=== PATIENT | female | born 1945 ===

== ENCOUNTER 2021-06-07 16:06 | Inpatient (IN) | payer MEDICARE, OTHER ==
[~2021-06-07] VITALS: Ht 160 cm; Wt 85.7 kg
--- NOTE | 2021-06-07 16:31 | NUR ---
PT IS IN ROOM #1A. DR GAMEZ EVALUATED THE PT.
[2021-06-07] MEDS ORDERED: LISI40TA13 PO (16:35)
[2021-06-07] MEDS ORDERED: ATEN25TA PO (16:35)
[2021-06-07] MEDS ORDERED: vitamin D PO (16:35)
[2021-06-07] MEDS ORDERED: POTA10CA43 PO (16:35)
[2021-06-07] MEDS ORDERED: AMLO-212 PO (16:35)
[2021-06-07] MEDS ORDERED: ATOR20TA PO (16:35)
[2021-06-07] MEDS ORDERED: LIDO1ADH71 TP (16:35)
[2021-06-07] MEDS ORDERED: ESCI-9 PO (16:35)
[2021-06-07] MEDS ORDERED: ASPI-869 PO (16:35)
[2021-06-07] MEDS ORDERED: ACET-2154 PO (16:35)
[2021-06-07] MEDS ORDERED: FURO20TA4 PO (16:35)
[2021-06-07 17:29] LABS: *AMPHETAMINE, URINE NEGATIVE (NEGATIVE); *CANNABINOID, URINE NEGATIVE (NEGATIVE); *COCCAINE, URINE NEGATIVE (NEGATIVE); *OPIATE, URINE NEGATIVE (NEGATIVE); *PHENCYCLIDINE SCREEN,URINE NEGATIVE (NEGATIVE)
--- NOTE | 2021-06-07 18:37 | NUR ---
REPORT WAS GIVEN TO RN MHU.
[2021-06-07] MEDS ORDERED: ACETAMINOPHEN 325 MG TABLET PO PRN (19:00)
--- NOTE | 2021-06-07 19:15 | NUR ---
Report given by SYBIL Swanson. Pt. is pending [facility] admission. Pt. currently resting in bed, complies with instructions, denies any symptoms. A&Ox3.
[2021-06-07] MEDS ORDERED: MAGNESIUM HYDROXIDE 30 ML LIQUID UDC PO PRN (19:45)
[2021-06-07] MEDS ORDERED: MAG HYDROX/AL HYDROX/SIMETH 30 ML LIQUID UDC PO PRN (19:45)
[2021-06-07] MEDS ORDERED: TEMAZEPAM 7.5 MG CAPSULE PO PRN (19:45)
[2021-06-07] MEDS ORDERED: BLOOD SUGAR DIAGNOSTIC 1 EACH STRIP VI ONE (19:45)
[2021-06-07] MEDS: ATORVASTATIN 20 MG TABLET PO SCH ×2 (21:00→21:19)
[2021-06-07] MEDS: LORAZEPAM 1 MG TABLET PO PRN (21:19)
[2021-06-07 21:34] VITALS: BP 157/80
--- NOTE | 2021-06-08 01:43 | NUR ---
ADMITTED TO THE UNIT ON 515 HOLD A FEMALE @ 20:00 FOR GD/DTO. DR VILLALOBOS IS THE PSYCHIATRIST AND DR SEGOVIA IS THE WELL SHOOTER.[facility] NOTIFIED OF ADMISSION.PER HOLD SHE WAS TRANSFERRED FROM [facility] WHERE STAFF REPORTS SHE WAS INCREASINGLY AGITATED,AGGRESSIVE. AND STRIKING OUT AT OTHER RESIDENTS AND CARE DEPENDENTS.SHE WOULD NOT ALSO LISTEN WHEN RE-DIRECTED.UPON FACE TO FACE ASSESSMENT SHE DENIED STRIKING OTHERS " I DID NOT HIT ANYBODY BUT I HATE BULLIES'.SHE HAS MINIMAL INSIGHT AND TENDS TO MINIMIZE EVERYTHING. SHE IS ALSO PARANOID SAYING "THEY HAVE GANGED UP AGAINST BECAUSE I SAW A CHAVEZ TOUCH MY ROOMMATES BOOBS' SHE FOR EXAMPLE SAYS "AM NOT A DIABETIC AND WOULD NOT TAKE ANY MEDICATION EXCEPT MY BP MEDS." RIGHTS HANDBOOK GIVEN TO HER WITH UNIT RULES. BODY ASSESSMENT CHECK WAS DONE. IN BED AND SLEEPING INTERMITTENTLY. VISUAL CHECKS MADE ON HER FOR SAFETY.WILL CONTINUE TO MONITOR.
--- NOTE | 2021-06-08 06:12 | NUR ---
SHE SLEPT FOR 5:30 HOURS. ABLE TO SELF TURN.WILL CONTINUE WITH MONITORING.
[2021-06-08 07:47] VITALS: BP 136/56
[2021-06-08] MEDS: LISINOPRIL 20 MG TABLET PO SCH (08:47)
[2021-06-08] MEDS: FUROSEMIDE 20 MG TABLET PO SCH (08:47)
[2021-06-08] MEDS: CHOLECALCIFEROL 1,000 UNIT TABLET PO SCH ×2 (08:47→08:57)
[2021-06-08] MEDS: ASPIRIN EC 81 MG TABLET.DR PO SCH (08:47)
[2021-06-08] MEDS: AMLODIPINE 5 MG TABLET PO SCH (08:48)
[2021-06-08] MEDS: ATENOLOL 25 MG TABLET PO SCH (08:48)
[2021-06-08] MEDS ORDERED: ASPIRIN EC 325 MG TABLET.DR PO SCH (09:00)
[2021-06-08] MEDS ORDERED: Medication Not On Formulary EA (Lisinopril 40 MG) PO SCH (09:00)
[2021-06-08] MEDS ORDERED: VITAMIN D 50 MCG PO SCH (09:00)
[2021-06-08 09:41] LABS: MEAN CORPUSCULAR HEMOGLOBIN 29.9 uug (24.7-32.8); MEAN CORPUSCULAR VOLUME 88.7 fL (75.5-95.3); PLATELET COUNT (AUTO) 217 K/uL (179-408)
[2021-06-08 10:11] LABS: CARBON DIOXIDE 24 mmol/L (21-32); CHLORIDE 105 mmol/L (98-107); CREATININE 0.9 mg/dL (0.6-1.3); GLUCOSE 191 mg/dL (74-106); POTASSIUM 3.4 mmol/L (3.5-5.1); UREA NITROGEN, BLOOD 15 mg/dL (7-18)
[2021-06-08 10:13] LABS: ETHANOL < 3 MG/DL (0-0)
[2021-06-08 10:16] LABS: ALANINE AMINOTRANSFERASE 32 U/L (14-59); ALKALINE PHOSPHATASE 141 U/L (50-136); ASPARTATE AMINOTRANSFERASE 25 U/L (15-37); BILIRUBIN,DIRECT 0.1 mg/dL (0.0-0.2); BILIRUBIN,TOTAL 0.5 mg/dL (0.2-1.0); TOTAL PROTEIN, SERUM 7.6 g/dL (6.4-8.2)
[2021-06-08 10:40] LABS: THYROID STIMULATING HORMONE 4.094 mIU/mL (0.358-3.740)
[2021-06-08 13:06] LABS: ACETAMINOPHEN < 2.0 ug/mL (10-30)
[2021-06-08 16:30] VITALS: BP 144/84
[2021-06-08 20:00] VITALS: BP 172/68
[2021-06-08] MEDS: ATORVASTATIN 20 MG TABLET PO SCH (20:14)
[2021-06-08] MEDS: ACETAMINOPHEN 325 MG TABLET PO PRN (20:14)
[2021-06-08] MEDS: LORAZEPAM 1 MG TABLET PO PRN (20:14)
[2021-06-08 21:42] VITALS: BP 124/65
--- NOTE | 2021-06-09 05:49 | NUR ---
Received the patient in the day room, coloring. Design Assembler was able to engage patient in conversation. The patient is alert but forgetful and confused about the situation of being here. Design Assembler reoriented patient and provided assurance. Education given regarding medications. Patient was compliant at that time. This patient does anger easily but has not struck out at anybody and is redirectable.Total sleep hours last night were 5.30. Continuing to monitor for safety , behavior escalation and compliance.
[2021-06-09 07:53] VITALS: BP 112/88
[2021-06-09] MEDS ORDERED: risperiDONE 0.25 MG TABLET PO SCH (09:00)
[2021-06-09] MEDS: ASPIRIN EC 81 MG TABLET.DR PO SCH (09:05)
[2021-06-09] MEDS: FUROSEMIDE 20 MG TABLET PO SCH (09:06)
[2021-06-09] MEDS: risperiDONE 0.5 MG TABLET PO SCH ×3 (09:06→16:46)
[2021-06-09] MEDS: CHOLECALCIFEROL 1,000 UNIT TABLET PO SCH (09:06)
[2021-06-09] MEDS: LISINOPRIL 20 MG TABLET PO SCH (09:06)
[2021-06-09] MEDS: ATENOLOL 25 MG TABLET PO SCH (09:07)
[2021-06-09] MEDS: AMLODIPINE 5 MG TABLET PO SCH (09:07)
[2021-06-09 16:56] VITALS: BP 150/61
[2021-06-09] MEDS: METFORMIN HCL 500 MG TABLET PO SCH ×2 (17:12→17:13)
[2021-06-09 20:00] VITALS: BP 129/60
[2021-06-09] MEDS: LORAZEPAM 1 MG TABLET PO PRN (20:20)
[2021-06-09] MEDS: ATORVASTATIN 20 MG TABLET PO SCH (20:20)
[2021-06-10 07:30] VITALS: BP 149/63
[2021-06-10] MEDS: ASPIRIN EC 81 MG TABLET.DR PO SCH (08:36)
[2021-06-10] MEDS: risperiDONE 0.5 MG TABLET PO SCH ×2 (08:36→16:56)
[2021-06-10] MEDS: CHOLECALCIFEROL 1,000 UNIT TABLET PO SCH (08:36)
[2021-06-10] MEDS: METFORMIN HCL 500 MG TABLET PO SCH ×2 (08:36→17:22)
[2021-06-10] MEDS: LISINOPRIL 20 MG TABLET PO SCH (08:37)
[2021-06-10] MEDS: AMLODIPINE 5 MG TABLET PO SCH (08:37)
[2021-06-10] MEDS: FUROSEMIDE 20 MG TABLET PO SCH (08:37)
[2021-06-10] MEDS: ATENOLOL 25 MG TABLET PO SCH (08:39)
--- NOTE | 2021-06-10 08:57 | NUR ---
Firearms Report: Residential Director completed and submitted a [employer] firearms report for 5150 grave disability certifications. A copy of report has been placed in patient chart.
--- NOTE | 2021-06-10 10:05 | NUR ---
ANASTASIYA Initial Discharge Plan: Patient currently resides at [address] [place] [address]; ([phone]). Patient currently resides at [facility]. This SW contacted pt's daughter Jojo ([phone]) to discuss treatment plan and discharge plan, unavailable at this time. ANASTASIYA will work with the MD, family, and treatment team to help coordinate proper discharge.
--- NOTE | 2021-06-10 10:19 | NUR ---
SW Family Contact: This SW contacted pt's daughter Jojo ([phone]) to discuss treatment plan and discharge plan. Daughter advised that she would want pt to return back to her skilled nursing home upon discharge.
--- NOTE | 2021-06-10 11:24 | NUR ---
Treatment Plan: This SW attempted to have pt sign treatment plan. Pt shook her head and refused to sign. Pt appeared paranoid.
[2021-06-10 15:11] VITALS: BP 130/45
--- NOTE | 2021-06-10 16:11 | NUR ---
SNF Referral: This SW faxed clinicals to [facility] ([phone]) (C:[phone]) and sent pt's clinicals who stated that [facility] referred.
[2021-06-10 20:22] VITALS: BP 148/53
[2021-06-10] MEDS: ATORVASTATIN 20 MG TABLET PO SCH (20:25)
[2021-06-11 07:30] VITALS: BP 125/63
[2021-06-11] MEDS: CHOLECALCIFEROL 1,000 UNIT TABLET PO SCH (09:42)
[2021-06-11] MEDS: ASPIRIN EC 81 MG TABLET.DR PO SCH (09:42)
[2021-06-11] MEDS: ATENOLOL 25 MG TABLET PO SCH (09:43)
[2021-06-11] MEDS: risperiDONE 0.5 MG TABLET PO SCH ×2 (09:43→20:12)
[2021-06-11] MEDS: METFORMIN HCL 500 MG TABLET PO SCH ×2 (09:43→17:43)
[2021-06-11] MEDS: LISINOPRIL 20 MG TABLET PO SCH (09:44)
[2021-06-11] MEDS: AMLODIPINE 5 MG TABLET PO SCH (09:44)
[2021-06-11] MEDS: FUROSEMIDE 20 MG TABLET PO SCH (09:44)
--- NOTE | 2021-06-11 10:38 | NUR ---
Individual Therapy: log pond worker met with patient for brief counseling and assessing patient's presenting problem aggressive behavior. Pt appeared to be withdrawn and very guarded. Pt did not want to conduct therapy at this time.
--- NOTE | 2021-06-11 12:53 | NUR ---
SNF Contact: This SW faxed received a call from [facility] (F:[phone]) (C:[phone]) who stated that they are unable to accept pt due to behavior issues.
[2021-06-11 15:45] VITALS: BP 158/67
[2021-06-11 20:09] VITALS: BP 145/50
[2021-06-11] MEDS: ATORVASTATIN 20 MG TABLET PO SCH (20:12)
--- NOTE | 2021-06-12 07:15 | NUR ---
Received pt. in bed sleeping comfortably easily arousable. Pt fully awake at around 1000 complian with medications no c/of pain .
[2021-06-12 07:30] VITALS: BP 123/45
[2021-06-12] MEDS: FUROSEMIDE 20 MG TABLET PO SCH (08:56)
[2021-06-12] MEDS: CHOLECALCIFEROL 1,000 UNIT TABLET PO SCH (08:56)
[2021-06-12] MEDS: METFORMIN HCL 500 MG TABLET PO SCH ×2 (08:56→17:37)
[2021-06-12] MEDS: risperiDONE 0.5 MG TABLET PO SCH (08:57)
[2021-06-12] MEDS: ASPIRIN EC 81 MG TABLET.DR PO SCH (08:57)
[2021-06-12] MEDS: LISINOPRIL 20 MG TABLET PO SCH (08:57)
[2021-06-12] MEDS: AMLODIPINE 5 MG TABLET PO SCH (08:58)
[2021-06-12] MEDS: ATENOLOL 25 MG TABLET PO SCH (09:00)
[2021-06-12 16:00] VITALS: BP 128/57
--- NOTE | 2021-06-12 19:04 | NUR ---
left pt. resting no c/of pain no aggressive behavior, compliant with care.
[2021-06-12 20:14] VITALS: BP 127/63
[2021-06-12] MEDS: ATORVASTATIN 20 MG TABLET PO SCH (20:17)
[2021-06-12] MEDS: risperiDONE 1 MG TABLET PO SCH (20:17)
[2021-06-13 07:30] VITALS: BP 137/54
--- NOTE | 2021-06-13 08:22 | NUR ---
SW Note: [facility] came to evaluate pt today and stated will let this SW if they will accept pt.
[2021-06-13] MEDS: risperiDONE 1 MG TABLET PO SCH ×2 (08:26→22:09)
[2021-06-13] MEDS: CHOLECALCIFEROL 1,000 UNIT TABLET PO SCH (08:26)
[2021-06-13] MEDS: ASPIRIN EC 81 MG TABLET.DR PO SCH (08:27)
[2021-06-13] MEDS: AMLODIPINE 5 MG TABLET PO SCH (08:27)
[2021-06-13] MEDS: FUROSEMIDE 20 MG TABLET PO SCH (08:27)
[2021-06-13] MEDS: LISINOPRIL 20 MG TABLET PO SCH (08:27)
[2021-06-13] MEDS: METFORMIN HCL 500 MG TABLET PO SCH ×2 (08:27→17:55)
[2021-06-13] MEDS: ATENOLOL 25 MG TABLET PO SCH (08:28)
--- NOTE | 2021-06-13 09:28 | NUR ---
Received pt. sleeping comfortably AAOx4. vitals stable compliant with morning med, with no aggressive behavior noted. Reality re-orientation provided. Will continue with care plan
--- NOTE | 2021-06-13 13:14 | NUR ---
ANASTASIYA PC Hearing: Patient had 5250 probable cause hearing today and it was upheld for danger to others and grave disability.
[2021-06-13 16:00] VITALS: BP 121/68
[2021-06-13 20:00] VITALS: BP 136/67
[2021-06-13] MEDS: ATORVASTATIN 20 MG TABLET PO SCH (20:34)
--- NOTE | 2021-06-13 20:45 | NUR ---
Patient ambulatory using walker.Denies SI/HI,appeared suspicious about her medication. Stated she only takes lipitor during the night. Explained risk and benefits of taking medication.Patient then agreed to all her due meds.Will continue to monitor.
--- NOTE | 2021-06-14 06:17 | NUR ---
Patient slept 5 hrs. No s/s of distress. No episodes of aggressive behavior.
[2021-06-14 07:51] VITALS: BP 103/49
[2021-06-14] MEDS: FUROSEMIDE 20 MG TABLET PO SCH (08:18)
[2021-06-14] MEDS: risperiDONE 1 MG TABLET PO SCH ×2 (08:18→20:07)
[2021-06-14] MEDS: ASPIRIN EC 81 MG TABLET.DR PO SCH (08:18)
[2021-06-14] MEDS: METFORMIN HCL 500 MG TABLET PO SCH ×2 (08:18→17:17)
[2021-06-14] MEDS: CHOLECALCIFEROL 1,000 UNIT TABLET PO SCH (08:18)
[2021-06-14] MEDS: LISINOPRIL 20 MG TABLET PO SCH (08:19)
[2021-06-14] MEDS: ATENOLOL 25 MG TABLET PO SCH (08:19)
[2021-06-14] MEDS: AMLODIPINE 5 MG TABLET PO SCH (08:19)
--- NOTE | 2021-06-14 09:22 | NUR ---
SNF Referral: This SW sent clinicals to [facility] admin from [facility] for placement option.
--- NOTE | 2021-06-14 13:07 | NUR ---
SNF Contact This SW sent clinicals to Ed admin from [facility] who stated that pt is accepted.
--- NOTE | 2021-06-14 13:12 | NUR ---
SW Family Contact: This SW contacted patient's daughter Jojo ([phone]) and left a detailed voicemail that patient does not want to go back to [facility]. This SW stated that pt is accepted at [facility] and she would want to go there.
--- NOTE | 2021-06-14 13:25 | NUR ---
SW Note: This SW spoke with patient and pt stated that she does not want to go back to [facility]. This SW offered nursing facility option and stated that she is accepted at [facility] and she expressed she would want to go there.
--- NOTE | 2021-06-14 14:19 | NUR ---
SW Coordination of Care: This SW received a call from Toña([phone]) from facility [facility]; ([phone]) who stated that [facility] can not accept pt and would want her to go to [facility] and stated will evaluate pt on 06/15. This SW sent pt's updated clinicals ([phone]).
[2021-06-14] MEDS: ATORVASTATIN 20 MG TABLET PO SCH (20:07)
[2021-06-14] MEDS: LORAZEPAM 1 MG TABLET PO PRN (20:07)
[2021-06-14 20:14] VITALS: BP 136/62
[2021-06-15 07:33] VITALS: BP 127/47
[2021-06-15] MEDS: ASPIRIN EC 81 MG TABLET.DR PO SCH (08:32)
[2021-06-15] MEDS: risperiDONE 1 MG TABLET PO SCH ×2 (08:32→20:12)
[2021-06-15] MEDS: CHOLECALCIFEROL 1,000 UNIT TABLET PO SCH (08:32)
[2021-06-15] MEDS: METFORMIN HCL 500 MG TABLET PO SCH ×2 (08:32→17:06)
[2021-06-15] MEDS: FUROSEMIDE 20 MG TABLET PO SCH (08:32)
[2021-06-15] MEDS: ATENOLOL 25 MG TABLET PO SCH (08:33)
[2021-06-15] MEDS: AMLODIPINE 5 MG TABLET PO SCH (08:33)
[2021-06-15] MEDS: LISINOPRIL 20 MG TABLET PO SCH (08:34)
[2021-06-15 16:33] VITALS: BP 126/70
[2021-06-15 20:00] VITALS: BP 121/62
[2021-06-15] MEDS: LORAZEPAM 1 MG TABLET PO PRN (20:11)
[2021-06-15] MEDS: ATORVASTATIN 20 MG TABLET PO SCH (20:11)
[2021-06-16 07:30] VITALS: BP 133/67
[2021-06-16] MEDS: FUROSEMIDE 20 MG TABLET PO SCH (08:17)
[2021-06-16] MEDS: CHOLECALCIFEROL 1,000 UNIT TABLET PO SCH (08:17)
[2021-06-16] MEDS: risperiDONE 1 MG TABLET PO SCH ×2 (08:17→20:39)
[2021-06-16] MEDS: METFORMIN HCL 500 MG TABLET PO SCH ×2 (08:17→17:06)
[2021-06-16] MEDS: ASPIRIN EC 81 MG TABLET.DR PO SCH (08:17)
[2021-06-16] MEDS: AMLODIPINE 5 MG TABLET PO SCH (08:17)
[2021-06-16] MEDS: LISINOPRIL 20 MG TABLET PO SCH (08:17)
[2021-06-16] MEDS: ATENOLOL 25 MG TABLET PO SCH (08:18)
[2021-06-16 16:00] VITALS: BP 106/69
[2021-06-16 19:55] VITALS: BP 102/48
[2021-06-16] MEDS: ATORVASTATIN 20 MG TABLET PO SCH (20:39)
[2021-06-16] MEDS: LORAZEPAM 1 MG TABLET PO PRN (20:42)
--- NOTE | 2021-06-16 23:54 | NUR ---
GPS MEDICATION ADMINISTRATION CLARIFICATION ; All medications given to this patient on 06/16/21 from 1900 till now were administered by this sports writer.
[2021-06-17 07:30] VITALS: BP 101/53
[2021-06-17] MEDS: METFORMIN HCL 500 MG TABLET PO SCH ×2 (08:49→17:08)
[2021-06-17] MEDS: FUROSEMIDE 20 MG TABLET PO SCH (08:49)
[2021-06-17] MEDS: ASPIRIN EC 81 MG TABLET.DR PO SCH (08:49)
[2021-06-17] MEDS: risperiDONE 1 MG TABLET PO SCH ×2 (08:49→20:31)
[2021-06-17] MEDS: CHOLECALCIFEROL 1,000 UNIT TABLET PO SCH (08:49)
[2021-06-17] MEDS: LISINOPRIL 20 MG TABLET PO SCH (08:50)
[2021-06-17] MEDS: AMLODIPINE 5 MG TABLET PO SCH (08:50)
[2021-06-17] MEDS: ATENOLOL 25 MG TABLET PO SCH (08:51)
--- NOTE | 2021-06-17 15:02 | NUR ---
SW Note: Toña jackman from [facility] came to evaluate pt and stated they accepted pt.
[2021-06-17 15:04] VITALS: BP 105/46
--- NOTE | 2021-06-17 15:05 | NUR ---
SW Family Contact: This SW contacted patient's daughter Jojo ([phone]) and notified that patient is accepted at [facility] that [facility] that pt has been at before and want pt at that facility upon discharge. This SW stated pt is acceptable of this.
--- NOTE | 2021-06-17 15:07 | NUR ---
SW Note: This SW spoke with pt and stated pt is accepted at [facility] and pt stated that she has been there before and would want to go there. Pt does not want to go back to [facility].
[2021-06-17 20:01] VITALS: BP 104/56
[2021-06-17] MEDS: ATORVASTATIN 20 MG TABLET PO SCH (20:34)
[2021-06-18 07:30] VITALS: BP 141/75
[2021-06-18] MEDS: FUROSEMIDE 20 MG TABLET PO SCH (08:26)
[2021-06-18] MEDS: METFORMIN HCL 500 MG TABLET PO SCH ×2 (08:26→17:03)
[2021-06-18] MEDS: ASPIRIN EC 81 MG TABLET.DR PO SCH (08:26)
[2021-06-18] MEDS: SERTRALINE HCL 50 MG TABLET PO SCH (08:26)
[2021-06-18] MEDS: ACETAMINOPHEN 325 MG TABLET PO PRN (08:26)
[2021-06-18] MEDS: CHOLECALCIFEROL 1,000 UNIT TABLET PO SCH (08:26)
[2021-06-18] MEDS: risperiDONE 1 MG TABLET PO SCH ×2 (08:26→20:33)
[2021-06-18] MEDS: ATENOLOL 25 MG TABLET PO SCH (08:27)
[2021-06-18] MEDS: AMLODIPINE 5 MG TABLET PO SCH (08:27)
[2021-06-18] MEDS: LISINOPRIL 20 MG TABLET PO SCH (08:28)
[2021-06-18 15:53] VITALS: BP 121/65
[2021-06-18 20:00] VITALS: BP 122/51
[2021-06-18] MEDS: ATORVASTATIN 20 MG TABLET PO SCH (20:33)
--- NOTE | 2021-06-18 21:16 | NUR ---
Received patient in the hallway, patient med compliant, pleasant upon approach, poor insight and semi fair judgment. Patient med compliant. Patient will remain in a [facility] for further evaluation and treatment.
[2021-06-19 07:50] VITALS: BP 135/52
[2021-06-19] MEDS: CHOLECALCIFEROL 1,000 UNIT TABLET PO SCH (08:52)
[2021-06-19] MEDS: SERTRALINE HCL 50 MG TABLET PO SCH (08:53)
[2021-06-19] MEDS: risperiDONE 1 MG TABLET PO SCH ×2 (08:53→21:55)
[2021-06-19] MEDS: ASPIRIN EC 81 MG TABLET.DR PO SCH (08:53)
[2021-06-19] MEDS: METFORMIN HCL 500 MG TABLET PO SCH ×2 (08:53→18:43)
[2021-06-19] MEDS: FUROSEMIDE 20 MG TABLET PO SCH (08:53)
[2021-06-19] MEDS: AMLODIPINE 5 MG TABLET PO SCH (08:54)
[2021-06-19] MEDS: LISINOPRIL 20 MG TABLET PO SCH (08:55)
[2021-06-19] MEDS: ATENOLOL 25 MG TABLET PO SCH (08:56)
[2021-06-19 15:36] VITALS: BP 130/57
[2021-06-19 21:01] VITALS: BP 110/52
[2021-06-19] MEDS: ATORVASTATIN 20 MG TABLET PO SCH (21:55)
--- NOTE | 2021-06-19 22:00 | NUR ---
received patient in her room in bed sleeping but easily arousable. patient noted A/O x 2 able to abulate with steady gait with a FWW. patient noted with low mood, sad face. Upon interview, she stated, "My daughter is having a surgery and she is not telling me but i know she is". patient was reassured and redirected. She denied SI/HI/VH/AH. she is able to verbally CFS. her mood is depressed and affect is blunted. Patient was offered PO fluids and snacks. V/S stable. will continue to monitor.
[2021-06-20 07:30] VITALS: BP 133/49
--- NOTE | 2021-06-20 08:04 | NUR ---
DISCHARGE NOTE: Patient will be discharged to nursing facility [facility]; [address] [place] [address] ([phone]) via ambulance at 1pm. public health social worker spoke with Toña ([phone]) who stated pt is welcomed back today. Patients daughter Jojo ([phone]) is aware and agreeable with discharge. Patient is alert and oriented x2 and is unable to plan for self-care. Patient denies any suicidal or homicidal ideations. Patient denies visual/auditory hallucinations. Patient is aware and agreeable with discharge plans. Patient will continue to follow-up with (Psychiatrist) Dr. Fong and (Link Trainer Mechanic) Dr. Leyva. Patient presented with euthymic mood and congruent affect.
[2021-06-20] MEDS: risperiDONE 1 MG TABLET PO SCH (08:31)
[2021-06-20] MEDS: SERTRALINE HCL 50 MG TABLET PO SCH (08:31)
[2021-06-20] MEDS: ASPIRIN EC 81 MG TABLET.DR PO SCH (08:31)
[2021-06-20] MEDS: CHOLECALCIFEROL 1,000 UNIT TABLET PO SCH (08:31)
[2021-06-20] MEDS: FUROSEMIDE 20 MG TABLET PO SCH (08:32)
[2021-06-20] MEDS: AMLODIPINE 5 MG TABLET PO SCH (08:32)
[2021-06-20] MEDS: LISINOPRIL 20 MG TABLET PO SCH (08:32)
[2021-06-20] MEDS: METFORMIN HCL 500 MG TABLET PO SCH (08:32)
[2021-06-20 08:33] VITALS: BP 133/49
[2021-06-20] MEDS: ATENOLOL 25 MG TABLET PO SCH (08:33)
--- NOTE | 2021-06-20 15:30 | NUR ---
Patient discharged to [facility]. AOx2. On room air. Vital signs WNL. No signs of acute distress. No disruptive or aggressive behavior noted. Patient aware and agreeable of discharge but refused to sign discharge documents. Belongings accounted for and belongings list signed. ID armband removed. Patient left unit via ambulance gurney. Nursing report given to SYBIL Peterson of [facility].
== END 2021-06-20 15:10 | DRG 885 ==
LOC: ER 16:06 → GPS 18:46
PROVIDERS: ADMIT Psychiatry & Neurology Psychiatry; ATTEND Nurse Practitioner Family
DX: F29 Unspecified psychosis not due to a substance or known physiological condition (principal); I11.0 Hypertensive heart disease with heart failure; E11.65 Type 2 diabetes mellitus with hyperglycemia; E86.0 Dehydration; I50.9 Heart failure, unspecified; F03.90 Unspecified dementia, unspecified severity, without behavioral disturbance, psychotic disturbance, mood disturbance, and anxiety; Z79.899 Other long term (current) drug therapy; Z79.82 Long term (current) use of aspirin; Z90.710 Acquired absence of both cervix and uterus; Z87.891 Personal history of nicotine dependence; Z86.73 Personal history of transient ischemic attack (TIA), and cerebral infarction without residual deficits
CPT/HCPCS: 36415; 70030-TC; 70450; 71045; 83605; 84443; 85025; 85730; 87040; 93005; 97161; A4663; G0480